=== PATIENT | female | born 1945 | race American Indian/Alaskan Native ===

== ENCOUNTER 2017-11-04 06:36 | Inpatient (IN) | payer MEDICARE ==
[2017-11-04 07:10] VITALS: BMI 34.3
[2017-11-04] MEDS ORDERED: Bacitracin Ointment 30 GM TUBE ONE (07:30)
[2017-11-04] MEDS ORDERED: Absorbable Gelatin Sponge Size 100 ONE (07:30)
[2017-11-04] MEDS ORDERED: Thrombin Topical 5,000 Int Units Spray Kit ONE (07:31)
--- NOTE | 2017-11-04 07:42 | CP.PCM.HP ---
History of Present Illness - History of Present Illness History of Present Illness: Orthopedic H&P Patient is a 72 y/o female with PMH of HTN, c/o of left knee pain. She has experienced severe left knee pain since 2014 following a fall from her steps at home. She has history of a left partial knee replacement in 2009 and a left total knee replacement in 2012. She had no difficulties or pain following the TKA until her injury in 2014. The pain has persisted but has progressively worsened despite conservative treatment with physical therapy and oral medications. Her pain is diffuse about the knee and intermittent. The pain is associated with stiffness and swelling which worsens with activity. She has pain and severe limitation with her daily activities, especially walking and stairclimbing. She denies numbness, tingling and radiation of pain. She also denies, CP/SOB/N/V/D/fever/CAMPUZANO/dysuria/melena. Review of Systems - Review of Systems All systems: reviewed and no additional remarkable complaints except Review of Systems: as per HPI Past Patient History - Infectious Disease Hx of Infectious Diseases: None - Tetanus Immunizations Tetanus Immunization: Unknown - Past Medical History & Family History Past Medical History?: Yes Past Family History: Reviewed and not pertinent - Past Social History Smoking Status: Never Smoked Alcohol: None - CARDIAC Hx Cardiac Disorders: Yes - PULMONARY Hx Respiratory Disorders: No - NEUROLOGICAL Hx Neurological Disorder: No - HEENT Hx HEENT Problems: Yes Hx Glaucoma: Yes - RENAL Hx Chronic Kidney Disease: No - ENDOCRINE/METABOLIC Hx Endocrine Disorders: No - HEMATOLOGICAL/ONCOLOGICAL Hx Blood Disorders: No - INTEGUMENTARY Hx Dermatological Problems: No - MUSCULOSKELETAL/RHEUMATOLOGICAL Hx Musculoskeletal Disorders: Yes Hx Arthritis: Yes (general) Hx Back Pain: Yes Hx Herniated Disk: Yes (3) - GASTROINTESTINAL Hx Gastrointestinal Disorders: No - GENITOURINARY/GYNECOLOGICAL Hx Genitourinary Disorders: No - PSYCHIATRIC Hx Psychophysiologic Disorder: No - SURGICAL HISTORY Hx Surgeries: Yes Hx Arthroscopy: Yes (right shoulder) Hx Orthopedic Surgery: Yes (L DAO, R knee partial repl, L knee partial repl, L TKA, R shoulder arth RCR) - ANESTHESIA Hx Anesthesia: Yes Hx Anesthesia Reactions: No Hx Malignant Hyperthermia: No Has any member of the family had a problem w/ anesthesia?: No Meds Allergies/Adverse Reactions: Allergies Allergy/AdvReac Type Severity Reaction Status Date / Time No Known Allergies Allergy Verified 11/04/17 08:50 Physical Exam - Constitutional Appears: No Acute Distress - Head Exam Head Exam: ATRAUMATIC, NORMOCEPHALIC - Eye Exam Eye Exam: EOMI, Normal appearance, PERRL - ENT Exam ENT Exam: Mucous Membranes Moist - Respiratory Exam Respiratory Exam: Clear to Auscultation Bilateral, NORMAL BREATHING PATTERN - GI/Abdominal Exam GI & Abdominal Exam: absent: Tenderness - Extremities Exam Additional comments: L knee: old TKA scar, mild tenderness, mild swelling well balanced TKA prosthesis sensation intact SP/DP/TN motor intact EHL/FHL/TA/G/Q/HS pedal pulses intact comp soft NT R knee: old lateral partial knee replacement scar, no tenderness, no swelling sensation intact SP/DP/TN motor intact EHL/FHL/TA/G/Q/HS pedal pulses intact comp soft NT - Neurological Exam Neurological exam: Alert, Oriented x3 - Psychiatric Exam Psychiatric exam: Normal Affect, Normal Mood - Skin Skin Exam: Normal Color, Warm Assessment & Plan (1) Painful total knee replacement, left Assessment and Plan: -OR today for left revision total knee replacement -The risks/benefits/advantages/disadvantages were explained to the patient in detail. The patient expresses understanding and agrees to proceed with procedure listed above -above d/w Dr. Peterson in agreement Status: Acute
--- NOTE | 2017-11-04 08:33 | CP.PCM.CON ---
History of Present Illness - History of Present Illness History of Present Illness: pt seen evaluated mets > 4, medically stable for OR, low risk for moderate risk procedure. Past Patient History - Infectious Disease Hx of Infectious Diseases: None - Tetanus Immunizations Tetanus Immunization: Unknown - Past Medical History & Family History Past Medical History?: Yes - Past Social History Smoking Status: Never Smoked - CARDIAC Hx Cardiac Disorders: Yes - PULMONARY Hx Respiratory Disorders: No - NEUROLOGICAL Hx Neurological Disorder: No - HEENT Hx HEENT Problems: Yes Hx Glaucoma: Yes - RENAL Hx Chronic Kidney Disease: No - ENDOCRINE/METABOLIC Hx Endocrine Disorders: No - HEMATOLOGICAL/ONCOLOGICAL Hx Blood Disorders: No - INTEGUMENTARY Hx Dermatological Problems: No - MUSCULOSKELETAL/RHEUMATOLOGICAL Hx Musculoskeletal Disorders: Yes Hx Arthritis: Yes (general) Hx Back Pain: Yes Hx Herniated Disk: Yes (3) - GASTROINTESTINAL Hx Gastrointestinal Disorders: No - GENITOURINARY/GYNECOLOGICAL Hx Genitourinary Disorders: No - PSYCHIATRIC Hx Psychophysiologic Disorder: No - SURGICAL HISTORY Hx Surgeries: Yes Hx Arthroscopy: Yes (right shoulder) Hx Orthopedic Surgery: Yes (total left hip,total left knee x2,carpal tunnel left ) - ANESTHESIA Hx Anesthesia: Yes Hx Anesthesia Reactions: No Hx Malignant Hyperthermia: No Has any member of the family had a problem w/ anesthesia?: No Meds Allergies/Adverse Reactions: Allergies Allergy/AdvReac Type Severity Reaction Status Date / Time No Known Allergies Allergy Verified 07/21/15 06:57 - Medications Medications: Current Medications Valsartan (Diovan) 160 mg PO DAILY [facility]
[2017-11-04 09:48] LABS: HEMOGLOBIN 14.5 g/dL (12.0-16.0); MEAN CELL VOLUME 91.5 fl (81.0-99.0); MEAN CORPUSCULAR HEMOGLOBIN 30.3 pg (27.0-31.0); MEAN CORPUSCULAR HGB CONC 33.1 g/dL (33.0-37.0); RBC 4.78 Mil/uL (3.80-5.20); RED CELL DISTRIBUTION WIDTH 14.8 % (11.5-14.5); WHITE BLOOD COUNT 3.2 K/uL (4.8-10.8)
[2017-11-04] MEDS ORDERED: Lactated Ringer's 1,000 ML IV ONE ×2 (09:55→10:00)
[2017-11-04] MEDS ORDERED: Propofol 10 mg/ml Inj (20 ML) ONE (10:02)
[2017-11-04] MEDS ORDERED: Etomidate 20 mg/10ml Inj IV ONE (10:02)
[2017-11-04] MEDS ORDERED: Lidocaine 4% (Laryng-O-Jet) Kit MM ONE (10:02)
[2017-11-04] MEDS ORDERED: Succinylcholine 200 mg/10 ml Inj IV ONE (10:02)
[2017-11-04] MEDS ORDERED: Rocuronium 10 mg/ml (5 ml) ONE (10:05)
[2017-11-04] MEDS ORDERED: Neostigmine 1:1000 (1 mg/ml) Inj ONE (10:06)
[2017-11-04] MEDS ORDERED: Midazolam 2 MG/2 ML VIAL ONE (10:13)
[2017-11-04] MEDS ORDERED: Tranexamic Acid 1,000 MG in Sodium Chloride 0.9% 100 ML IVPB ONE ×2 (10:58→13:29)
--- NOTE | 2017-11-04 11:01 | RAD ---
PROCEDURE: Left Knee Radiographs. HISTORY: Pain. COMPARISON: None. FINDINGS: BONES: Satisfactory position, alignment of prosthetic components No evidence of orthopedic hardware failure. JOINT EFFUSION: None. OTHER FINDINGS: None. IMPRESSION: No significant or acute findings to account for/ related to the clinical presentation.
[2017-11-04 11:45] LABS: FLUID TYPE SYNOVIAL FLUID
[2017-11-04 12:02] LABS: FLUID TYPE SYNOVIAL FLUID
[2017-11-04] MEDS ORDERED: Dexamethasone 4 mg/1 ml ONE (12:05)
[2017-11-04] MEDS ORDERED: Lactated Ringer's 500 ML IV ONE (14:15)
[2017-11-04] MEDS ORDERED: Oxycodone/Acetaminophen 5/325 mg Tab PO PRN (14:37)
[2017-11-04] MEDS ORDERED: HYDROmorphone 0.5 mg/0.5 ml ISec IVP PRN (14:41)
[2017-11-04 15:03] LABS: SF GROSS APPEARANCE CLOUDY (CLEAR); SYNOVIAL FLUID COMMENT SL BLOODY
[2017-11-04 15:06] LABS: SYNOVIAL FLUID MONO/MACROPHAGE 23 % (0-0)
[2017-11-04 15:16] LABS: SF GROSS APPEARANCE CLEAR (CLEAR); SYNOVIAL FLUID COMMENT SLIGHTLY BLOODY
[2017-11-04 15:19] LABS: SYNOVIAL FLUID MONO/MACROPHAGE 1 % (0-0)
--- NOTE | 2017-11-04 15:36 | CP.PCM.CON ---
History of Present Illness - History of Present Illness History of Present Illness: Patient is a 72 y/o female with PMH of HTN, c/o of left knee pain. She has experienced severe left knee pain since 2014 following a fall from her steps at home. She has history of a left partial knee replacement in 2009 and a left total knee replacement in 2012. She had no difficulties or pain following the TKA until her injury in 2014. The pain has persisted but has progressively worsened despite conservative treatment with physical therapy and oral medications. Her pain is diffuse about the knee and intermittent. The pain is associated with stiffness and swelling which worsens with activity. She has pain and severe limitation with her daily activities, especially walking and stairclimbing. She denies numbness, tingling and radiation of pain. She also denies, CP/SOB/N/V/D/fever/CAMPUZANO/dysuria/melena. Review of Systems - Review of Systems All systems: reviewed and no additional remarkable complaints except Review of Systems: as per HPI Past Patient History - Infectious Disease Hx of Infectious Diseases: None - Tetanus Immunizations Tetanus Immunization: Unknown - Past Medical History & Family History Past Medical History?: Yes Past Family History: Reviewed and not pertinent - Past Social History Smoking Status: Never Smoked Alcohol: None - CARDIAC Hx Cardiac Disorders: Yes - PULMONARY Hx Respiratory Disorders: No - NEUROLOGICAL Hx Neurological Disorder: No - HEENT Hx HEENT Problems: Yes Hx Glaucoma: Yes - RENAL Hx Chronic Kidney Disease: No - ENDOCRINE/METABOLIC Hx Endocrine Disorders: No - HEMATOLOGICAL/ONCOLOGICAL Hx Blood Disorders: No - INTEGUMENTARY Hx Dermatological Problems: No - MUSCULOSKELETAL/RHEUMATOLOGICAL Hx Musculoskeletal Disorders: Yes Hx Arthritis: Yes (general) Hx Back Pain: Yes Hx Herniated Disk: Yes (3) - GASTROINTESTINAL Hx Gastrointestinal Disorders: No - GENITOURINARY/GYNECOLOGICAL Hx Genitourinary Disorders: No - PSYCHIATRIC Hx Psychophysiologic Disorder: No - SURGICAL HISTORY Hx Surgeries: Yes Hx Arthroscopy: Yes (right shoulder) Hx Orthopedic Surgery: Yes (L DAO, R knee partial repl, L knee partial repl, L TKA, R shoulder arth RCR) - ANESTHESIA Hx Anesthesia: Yes Hx Anesthesia Reactions: No Hx Malignant Hyperthermia: No Has any member of the family had a problem w/ anesthesia?: No Meds Allergies/Adverse Reactions: Allergies Allergy/AdvReac Type Severity Reaction Status Date / Time No Known Allergies Allergy Verified 11/04/17 08:50 - Medications Medications: Current Medications Acetaminophen (Tylenol 325mg Tab) 650 mg PO Q4 PRN PRN Reason: Fever 101 degrees fahrenheit Artificial Tears (Artificial Tears) 1 drop OU BID [facility] Atorvastatin Calcium (Lipitor) 20 mg PO DAILY [facility] Docusate Sodium (Colace) 100 mg PO BID [facility] Home Med (Brimonidine Tartrate [Brimonidine Tartrate]) 10 ml OU BID [facility] Hydromorphone HCl (Dilaudid) 0.5 mg IVP Q5M PRN PRN Reason: Pain, moderate (4-7) Stop: 11/04/17 16:43 Tranexamic Acid 1,000 mg/ (Sodium Chloride) 110 mls @ 12.5 mls/hr IVPB ONCE ONE Stop: 11/04/17 19:45 Tranexamic Acid 1,000 mg/ (Sodium Chloride) 110 mls @ 12.5 mls/hr IVPB ONCE ONE Stop: 11/04/17 22:16 Cefazolin Sodium 2 gm/ Sodium (Chloride) 100 mls @ 100 mls/hr IVPB Q8 [facility] PRN Reason: Protocol Stop: 11/05/17 09:59 Lactated Ringer's (Lactated Ringer's) 1,000 mls @ 100 mls/hr IV .Q10H [facility] Lactated Ringer's (Lactated Ringer's) 1,000 mls @ 100 mls/hr IV .Q10H [facility] Morphine Sulfate (Morphine) 2 mg IVP Q4 PRN PRN Reason: Pain, severe (8-10) Ondansetron HCl (Zofran Inj) 4 mg IVP ONCE PRN PRN Reason: Nausea/Vomiting Ondansetron HCl (Zofran Inj) 4 mg IVP ONCE PRN PRN Reason: Nausea/Vomiting Stop: 11/04/17 16:43 Oxycodone/Acetaminophen (Percocet 5/325 Mg Tab) 2 tab PO Q4 PRN PRN Reason: Pain, severe (8-10) Stop: 11/07/17 14:38 Pantoprazole Sodium (Protonix Ec Tab) 40 mg PO DAILY [facility] Valsartan (Diovan) 160 mg PO DAILY [facility] Valsartan (Diovan) 320 mg PO DAILY [facility] Physical Exam - Constitutional Appears: No Acute Distress - Head Exam Head Exam: ATRAUMATIC, NORMAL INSPECTION - Eye Exam Eye Exam: EOMI, Normal appearance, PERRL - ENT Exam ENT Exam: Mucous Membranes Moist - Respiratory Exam Respiratory Exam: Clear to Auscultation Bilateral, NORMAL BREATHING PATTERN - GI/Abdominal Exam GI & Abdominal Exam: Normal Bowel Sounds. absent: Tenderness - Extremities Exam Additional comments: L knee: old TKA scar, mild tenderness, mild swelling well balanced TKA prosthesis sensation intact SP/DP/TN motor intact EHL/FHL/TA/G/Q/HS pedal pulses intact comp soft NT R knee: old lateral partial knee replacement scar, no tenderness, no swelling sensation intact SP/DP/TN motor intact EHL/FHL/TA/G/Q/HS pedal pulses intact comp soft NT - Neurological Exam Neurological exam: Alert, Oriented x3 - Psychiatric Exam Psychiatric exam: Normal Affect, Normal Mood - Skin Skin Exam: Normal Color, Warm Results - Vital Signs Recent Vital Signs: Last Vital Signs Temp 96.8 F L 11/04/17 15:05 Pulse 56 L 11/04/17 15:05 Resp 18 11/04/17 15:05 BP 136/91 H 11/04/17 15:05 Pulse Ox 98 11/04/17 14:50 - Labs Result Diagrams: 11/04/17 08:20 Labs: Laboratory Results - last 24 hr 11/04/17 11/04/17 11/04/17 08:20 08:20 11:43 WBC 3.2 L RBC 4.78 Hgb 14.5 Hct 43.8 MCV 91.5 MCH 30.3 MCHC 33.1 RDW 14.8 H Plt Count 189 D Fluid Type Synovial fluid Synovial WBC 406.0 H Synovial RBC 1062.0 H Synovial Neutrophils 21.0 H Synovial Lymphocytes 56.0 H Synov Monos/Macrophage 23 H Synovial Fluid Comment Sl bloody Blood Type O POSITIVE Antibody Screen Negative Crossmatch See Detail BBK History Checked Patient has bt 11/04/17 12:01 WBC RBC Hgb Hct MCV MCH MCHC RDW Plt Count Fluid Type Synovial fluid Synovial WBC 15.0 Synovial RBC 1476.0 H Synovial Neutrophils 3.0 H Synovial Lymphocytes 11.0 H Synov Monos/Macrophage 1 H Synovial Fluid Comment Slightly bloody Blood Type Antibody Screen Crossmatch BBK History Checked Assessment & Plan (1) Painful total knee replacement, left Assessment and Plan: -OR today for left revision total knee replacement -The risks/benefits/advantages/disadvantages were explained to the patient in detail. The patient expresses understanding and agrees to proceed with procedure listed above -above d/w Dr. Peterson in agreement Status: Acute
--- NOTE | 2017-11-04 15:43 | CP.PCM.HP ---
History of Present Illness - History of Present Illness History of Present Illness: CC: KNEE PAIN HPI: This is a 72 year old female PMH HTN, HLD, GERD, hx bilateral PE, glaucoma presents for L total knee revision after failing conservative treatment as outpatient. Patient has mets >4, and is medically stable and low risk for moderate risk procedure. She was evaluated by Dr. Emily Go for medical clearance as well. H/H 14.1/44.4. ECHO showed mild LVH, mild TR and AI. HD stable, NAD. ROS: perHPI all other systems reviewed and negative. Present on Admission - Present on Admission Any Indicators Present on Admission: No Past Patient History - Infectious Disease Hx of Infectious Diseases: None - Tetanus Immunizations Tetanus Immunization: Unknown - Past Medical History & Family History Past Medical History?: Yes Past Family History: Reviewed and not pertinent - Past Social History Smoking Status: Never Smoked Alcohol: None - CARDIAC Hx Cardiac Disorders: Yes - PULMONARY Hx Respiratory Disorders: No - NEUROLOGICAL Hx Neurological Disorder: No - HEENT Hx HEENT Problems: Yes Hx Glaucoma: Yes - RENAL Hx Chronic Kidney Disease: No - ENDOCRINE/METABOLIC Hx Endocrine Disorders: No - HEMATOLOGICAL/ONCOLOGICAL Hx Blood Disorders: No - INTEGUMENTARY Hx Dermatological Problems: No - MUSCULOSKELETAL/RHEUMATOLOGICAL Hx Musculoskeletal Disorders: Yes Hx Arthritis: Yes (general) Hx Back Pain: Yes Hx Herniated Disk: Yes (3) - GASTROINTESTINAL Hx Gastrointestinal Disorders: No - GENITOURINARY/GYNECOLOGICAL Hx Genitourinary Disorders: No - PSYCHIATRIC Hx Psychophysiologic Disorder: No - SURGICAL HISTORY Hx Surgeries: Yes Hx Arthroscopy: Yes (right shoulder) Hx Orthopedic Surgery: Yes (L DAO, R knee partial repl, L knee partial repl, L TKA, R shoulder arth RCR) - ANESTHESIA Hx Anesthesia: Yes Hx Anesthesia Reactions: No Hx Malignant Hyperthermia: No Has any member of the family had a problem w/ anesthesia?: No Meds Allergies/Adverse Reactions: Allergies Allergy/AdvReac Type Severity Reaction Status Date / Time No Known Allergies Allergy Verified 11/04/17 08:50 Physical Exam - Additional Findings Additional findings: General: awake, alert HEENT: NCAT, PERRL, EOMI HEART: RRR, S1, S2 no MRG LUNG: CTAB, no WRR ABD: soft, NT, ND, no mass, no HSM EXT: warm, well perfused NEURO: awake, alert SKIN: warm, dry PSYCH: normal mood, normal affect Results - Vital Signs Recent Vital Signs: Last Vital Signs Temp 96.8 F L 11/04/17 15:05 Pulse 56 L 11/04/17 15:05 Resp 18 11/04/17 15:05 BP 136/91 H 11/04/17 15:05 Pulse Ox 98 11/04/17 14:50 - Labs Result Diagrams: 11/04/17 08:20 Labs: Laboratory Results - last 24 hr 11/04/17 11/04/17 11/04/17 08:20 08:20 11:43 WBC 3.2 L RBC 4.78 Hgb 14.5 Hct 43.8 MCV 91.5 MCH 30.3 MCHC 33.1 RDW 14.8 H Plt Count 189 D Fluid Type Synovial fluid Synovial WBC 406.0 H Synovial RBC 1062.0 H Synovial Neutrophils 21.0 H Synovial Lymphocytes 56.0 H Synov Monos/Macrophage 23 H Synovial Fluid Comment Sl bloody Blood Type O POSITIVE Antibody Screen Negative Crossmatch See Detail BBK History Checked Patient has bt 11/04/17 12:01 WBC RBC Hgb Hct MCV MCH MCHC RDW Plt Count Fluid Type Synovial fluid Synovial WBC 15.0 Synovial RBC 1476.0 H Synovial Neutrophils 3.0 H Synovial Lymphocytes 11.0 H Synov Monos/Macrophage 1 H Synovial Fluid Comment Slightly bloody Blood Type Antibody Screen Crossmatch BBK History Checked Assessment & Plan - Assessment and Plan (Free Text) Plan: 72 year old female PMH HTN, HLD, GERD, hx bilateral PE, glaucoma presents for L total knee revision after failing conservative treatment as outpatient. Patient has mets >4, and is medically stable and low risk for moderate risk procedure. She was evaluated by Dr. Emily Go for medical clearance as well. H/H 14.1/44.4. ECHO showed mild LVH, mild TR and AI. HD stable, NAD. L knee Revision with Dr. Peterson Ancef 2 gm 2 more doses Incentive spirometry Orthopedic Surgery Dr. Peterson pain control PT AC per Ortho HTN HLD - continue Valsartan and Atorvastatin
--- NOTE | 2017-11-04 16:16 | PCM.SURG1 ---
Surgeon's Initial Post Op Note - Surgeon's Notes Surgeon: Kristen Sail Finisher Hand: MANN Samuels/ 2nd assist Kyle Bui Type of Anesthesia: General Endo, Spinal, Moderate Sedation{RN} Anesthesia Administered By: Dr Huertas Pre-Operative Diagnosis: Painful, non septic L TKR Operative Findings: aseptic lossening femoral component/aseptic loosening tibial componeent s/p L TKR. synovitis- tricompartmental. contracture posterioor capsule/. lateral patella contracture Post-Operative Diagnosis: as above Operation Performed: Revision L TKR. anterior and posterior synovectomy. posterior capsular releaase. lateral patella release. computer navigation Specimen/Specimens Removed: synvoiun/cartilage/bone Estimated Blood Loss: EBL {In ML}: 75 Blood Products Given: N/A Drains Used: Hemovac Post-Op Condition: Good Date of Surgery/Procedure: 11/04/17 Time of Surgery/Procedure: 11:15 (time in room /anaetshesia indcution time 9:55)
[2017-11-04] MEDS ORDERED: ceFAZolin 2 GM in Sodium Chloride 0.9% 100 ML IVPB SCH (17:00)
--- NOTE | 2017-11-04 17:10 | RAD ---
PROCEDURE: Left knee HISTORY: s/p L revision TKA COMPARISON: Preoperative study November 04, 2017. 08:49. TECHNIQUE: Standard protocol for this study/examination. FINDINGS: AP and lateral views demonstrate satisfactory position alignment of orthopedic hardware following residua of previously identified left knee arthroplasty. No evidence of loosening. No evidence of hardware failure. Findings in soft tissues including surgical drains noted. IMPRESSION: Satisfactory postoperative status.
[2017-11-04] MEDS: Lactated Ringer's 1,000 ML IV SCH ×2 (18:23→18:27)
[2017-11-04] MEDS: ceFAZolin 2 GM in Sodium Chloride 0.9% 100 ML IVPB SCH (18:23)
[2017-11-04] MEDS: Artificial Tears Opht Soln OU SCH (18:26)
--- NOTE | 2017-11-04 19:53 | CP.PCM.CON ---
History of Present Illness - History of Present Illness History of Present Illness: I WAS ASKED TO SEE THIS PATIENT WHO UNDERWENT A LEFT TKR EARLIER TODAY FOR SEVERE OA THAT FAILED CONSERVATIVE TREATMENT. SHE ALSO HAS A HISTORY OF HYPERTENSION, HYPERLIPIDEMIA, GERS AND PE'S. SHE DENIES ANY CARDIAC PROBLEMS SUCH CAD. SHE DOES NOT HAVE CHEST PAIN OR CAD. SHE HAS HAD MULTIPLE OTHER ORTHOPEDIC PROCEDURES IN THE PAST. Past Patient History - Infectious Disease Hx of Infectious Diseases: None - Tetanus Immunizations Tetanus Immunization: Unknown - Past Medical History & Family History Past Medical History?: Yes Past Family History: Reviewed and not pertinent - Past Social History Smoking Status: Never Smoked Alcohol: None - CARDIAC Hx Cardiac Disorders: Yes - PULMONARY Hx Respiratory Disorders: No - NEUROLOGICAL Hx Neurological Disorder: No - HEENT Hx HEENT Problems: Yes Hx Glaucoma: Yes - RENAL Hx Chronic Kidney Disease: No - ENDOCRINE/METABOLIC Hx Endocrine Disorders: No - HEMATOLOGICAL/ONCOLOGICAL Hx Blood Disorders: No - INTEGUMENTARY Hx Dermatological Problems: No - MUSCULOSKELETAL/RHEUMATOLOGICAL Hx Musculoskeletal Disorders: Yes Hx Arthritis: Yes (general) Hx Back Pain: Yes Hx Herniated Disk: Yes (3) - GASTROINTESTINAL Hx Gastrointestinal Disorders: No - GENITOURINARY/GYNECOLOGICAL Hx Genitourinary Disorders: No - PSYCHIATRIC Hx Psychophysiologic Disorder: No - SURGICAL HISTORY Hx Surgeries: Yes Hx Arthroscopy: Yes (right shoulder) Hx Orthopedic Surgery: Yes (L DAO, R knee partial repl, L knee partial repl, L TKA, R shoulder arth RCR) - ANESTHESIA Hx Anesthesia: Yes Hx Anesthesia Reactions: No Hx Malignant Hyperthermia: No Has any member of the family had a problem w/ anesthesia?: No Meds Allergies/Adverse Reactions: Allergies Allergy/AdvReac Type Severity Reaction Status Date / Time No Known Allergies Allergy Verified 11/04/17 08:50 - Medications Medications: Current Medications Acetaminophen (Tylenol 325mg Tab) 650 mg PO Q4 PRN PRN Reason: Fever 101 degrees fahrenheit Artificial Tears (Artificial Tears) 1 drop OU BID [facility] Last Admin: 11/04/17 18:26 Dose: 1 drop Atorvastatin Calcium (Lipitor) 20 mg PO DAILY [facility] Docusate Sodium (Colace) 100 mg PO BID [facility] Last Admin: 11/04/17 18:26 Dose: 100 mg Enoxaparin Sodium (Lovenox) 40 mg SC DAILY [facility] PRN Reason: Protocol Home Med (Brimonidine Tartrate [Brimonidine Tartrate]) 10 ml OU BID [facility] Tranexamic Acid 1,000 mg/ (Sodium Chloride) 110 mls @ 12.5 mls/hr IVPB ONCE ONE Stop: 11/04/17 22:16 Lactated Ringer's (Lactated Ringer's) 1,000 mls @ 100 mls/hr IV .Q10H [facility] Last Admin: 11/04/17 18:27 Dose: Not Given Lactated Ringer's (Lactated Ringer's) 1,000 mls @ 100 mls/hr IV .Q10H [facility] Last Admin: 11/04/17 18:23 Dose: Not Given Cefazolin Sodium 2 gm/ Sodium (Chloride) 100 mls @ 100 mls/hr IVPB Q8@0245,1045 ,1845 [facility] PRN Reason: Protocol Stop: 11/05/17 11:44 Last Admin: 11/04/17 18:23 Dose: 100 mls/hr Morphine Sulfate (Morphine) 2 mg IVP Q4 PRN PRN Reason: Pain, severe (8-10) Ondansetron HCl (Zofran Inj) 4 mg IVP ONCE PRN PRN Reason: Nausea/Vomiting Oxycodone/Acetaminophen (Percocet 5/325 Mg Tab) 2 tab PO Q4 PRN PRN Reason: Pain, severe (8-10) Stop: 11/07/17 14:38 Pantoprazole Sodium (Protonix Ec Tab) 40 mg PO DAILY [facility] Valsartan (Diovan) 320 mg PO DAILY [facility] Physical Exam - Respiratory Exam Respiratory Exam: Clear to Auscultation Bilateral - Cardiovascular Exam Cardiovascular Exam: REGULAR RHYTHM, +S1, +S2 - Extremities Exam Additional comments: LLE IN IMMOBILIZER RLE WITHOUT EDEMA AND NEGATIVE CARRINGTON'S SIGN Results - Vital Signs Recent Vital Signs: Last Vital Signs Temp 97.1 F L 11/04/17 18:30 Pulse 58 L 11/04/17 18:30 Resp 20 11/04/17 18:30 BP 137/81 11/04/17 18:30 Pulse Ox 95 11/04/17 16:15 - Labs Result Diagrams: 11/04/17 08:20 Labs: Laboratory Results - last 24 hr 11/04/17 11/04/17 11/04/17 08:20 08:20 11:43 WBC 3.2 L RBC 4.78 Hgb 14.5 Hct 43.8 MCV 91.5 MCH 30.3 MCHC 33.1 RDW 14.8 H Plt Count 189 D Fluid Type Synovial fluid Synovial WBC 406.0 H Synovial RBC 1062.0 H Synovial Neutrophils 21.0 H Synovial Lymphocytes 56.0 H Synov Monos/Macrophage 23 H Synovial Fluid Comment Sl bloody Blood Type O POSITIVE Antibody Screen Negative Crossmatch See Detail BBK History Checked Patient has bt 11/04/17 12:01 WBC RBC Hgb Hct MCV MCH MCHC RDW Plt Count Fluid Type Synovial fluid Synovial WBC 15.0 Synovial RBC 1476.0 H Synovial Neutrophils 3.0 H Synovial Lymphocytes 11.0 H Synov Monos/Macrophage 1 H Synovial Fluid Comment Slightly bloody Blood Type Antibody Screen Crossmatch BBK History Checked Assessment & Plan - Assessment and Plan (Free Text) Assessment: S/P LEFT TKR OF SEVERE OA HYPERTENSION HYPERLIPIDEMIA GERDS Plan: CONTINUE VALSARTAN, ATORVASTATIN, PROTONIX, LOVENOX AND PAIN MEDICATIONS
[2017-11-05] MEDS: Lactated Ringer's 1,000 ML IV SCH ×5 (01:39→22:15)
[2017-11-05] MEDS: ceFAZolin 2 GM in Sodium Chloride 0.9% 100 ML IVPB SCH ×2 (01:48→10:38)
[2017-11-05 07:06] LABS: MEAN CELL VOLUME 90.7 fl (81.0-99.0); MEAN CORPUSCULAR HEMOGLOBIN 30.6 pg (27.0-31.0); MEAN CORPUSCULAR HGB CONC 33.8 g/dL (33.0-37.0); RBC 3.9 Mil/uL (3.80-5.20); RED CELL DISTRIBUTION WIDTH 14.3 % (11.5-14.5); WHITE BLOOD COUNT 5.2 K/uL (4.8-10.8)
[2017-11-05 07:31] LABS: BLOOD UREA NITROGEN 15 mg/dl (7-17); CALCIUM 8.8 mg/dL (8.4-10.2); GFR AFRICAN-AMERICAN > 60; GFR NON-AFRICAN AMERICAN > 60
--- NOTE | 2017-11-05 09:08 | CP.PCM.PN ---
Subjective - Date & Time of Evaluation Date of Evaluation: 11/05/17 Time of Evaluation: 08:20 - Subjective Subjective: NO CHEST PAIN OR SOB Objective - Vital Signs/Intake and Output Vital Signs (last 24 hours): Temp Pulse Resp BP Pulse Ox 98.3 F 70 19 151/80 H 93 L 11/05/17 08:18 11/05/17 08:18 11/05/17 08:18 11/05/17 08:18 11/05/17 08:18 - Medications Medications: Current Medications Acetaminophen (Tylenol 325mg Tab) 650 mg PO Q4 PRN PRN Reason: Fever 101 degrees fahrenheit Artificial Tears (Artificial Tears) 1 drop OU BID [facility] Last Admin: 11/04/17 18:26 Dose: 1 drop Atorvastatin Calcium (Lipitor) 20 mg PO DAILY [facility] Brimonidine Tartrate (Alphagan 0.2% Opht) 1 drop OU BID [facility] Docusate Sodium (Colace) 100 mg PO BID [facility] Last Admin: 11/04/17 18:26 Dose: 100 mg Enoxaparin Sodium (Lovenox) 40 mg SC DAILY [facility] PRN Reason: Protocol Lactated Ringer's (Lactated Ringer's) 1,000 mls @ 100 mls/hr IV .Q10H [facility] Last Admin: 11/05/17 01:54 Dose: 100 mls/hr Lactated Ringer's (Lactated Ringer's) 1,000 mls @ 100 mls/hr IV .Q10H [facility] Last Admin: 11/05/17 01:39 Dose: Not Given Cefazolin Sodium 2 gm/ Sodium (Chloride) 100 mls @ 100 mls/hr IVPB Q8@0245,1045 ,1845 [facility] PRN Reason: Protocol Stop: 11/05/17 11:44 Last Admin: 11/05/17 01:48 Dose: 100 mls/hr Morphine Sulfate (Morphine) 2 mg IVP Q4 PRN PRN Reason: Pain, severe (8-10) Last Admin: 11/05/17 05:11 Dose: 2 mg Ondansetron HCl (Zofran Inj) 4 mg IVP ONCE PRN PRN Reason: Nausea/Vomiting Oxycodone/Acetaminophen (Percocet 5/325 Mg Tab) 2 tab PO Q4 PRN PRN Reason: Pain, severe (8-10) Stop: 11/07/17 14:38 Pantoprazole Sodium (Protonix Ec Tab) 40 mg PO DAILY [facility] Valsartan (Diovan) 320 mg PO DAILY [facility] - Labs Labs: 11/05/17 06:30 11/05/17 06:30 - Respiratory Exam Respiratory Exam: Clear to Ausculation Bilateral - Cardiovascular Exam Cardiovascular Exam: REGULAR RHYTHM, +S1, +S2 - Additional Findings Additional findings: H/H Assessment and Plan - Assessment and Plan (Free Text) Assessment: REVISION OF LEFT TKR HYPERTENSION HYPERLIPIDEMIA Plan: CONTINUE VALSARTAN, ATORVASTATIN, LOVENOX AND PAIN MEDICATIONS FOR REHA
[2017-11-05] MEDS: Brimonidine 0.2% 50 DROP/5 ML BOTTLE OU SCH ×2 (10:22→17:52)
[2017-11-05] MEDS: Enoxaparin 40 mg Syringe SC SCH (10:29)
[2017-11-05] MEDS: Pantoprazole 40 mg EC Tab PO SCH (10:30)
[2017-11-05] MEDS: Artificial Tears Opht Soln OU SCH ×2 (10:40→17:47)
--- NOTE | 2017-11-05 11:55 | CP.PCM.PN ---
Subjective - Date & Time of Evaluation Date of Evaluation: 11/05/17 Time of Evaluation: 11:55 - Subjective Subjective: doing well pain controlled for PT today hd stable nad Objective - Vital Signs/Intake and Output Vital Signs (last 24 hours): Temp Pulse Resp BP Pulse Ox 98.3 F 70 19 151/80 H 93 L 11/05/17 08:18 11/05/17 08:18 11/05/17 08:18 11/05/17 08:18 11/05/17 08:18 Intake and Output: General: awake, alert HEENT: NCAT, PERRL, EOMI HEART: RRR, S1, S2 no MRG LUNG: CTAB, no WRR ABD: soft, NT, ND, no mass, no HSM EXT: warm, well perfused NEURO: awake, alert SKIN: warm, dry PSYCH: normal mood, normal affect - Medications Medications: Current Medications Acetaminophen (Tylenol 325mg Tab) 650 mg PO Q4 PRN PRN Reason: Fever 101 degrees fahrenheit Artificial Tears (Artificial Tears) 1 drop OU BID [facility] Last Admin: 11/05/17 10:40 Dose: 1 drop Atorvastatin Calcium (Lipitor) 20 mg PO DAILY [facility] Last Admin: 11/05/17 10:29 Dose: 20 mg Brimonidine Tartrate (Alphagan 0.2% Opht) 1 drop OU BID [facility] Docusate Sodium (Colace) 100 mg PO BID [facility] Last Admin: 11/05/17 10:29 Dose: 100 mg Enoxaparin Sodium (Lovenox) 40 mg SC DAILY [facility] PRN Reason: Protocol Last Admin: 11/05/17 10:29 Dose: 40 mg Lactated Ringer's (Lactated Ringer's) 1,000 mls @ 100 mls/hr IV .Q10H [facility] Last Admin: 11/05/17 10:48 Dose: 100 mls/hr Lactated Ringer's (Lactated Ringer's) 1,000 mls @ 100 mls/hr IV .Q10H [facility] Last Admin: 11/05/17 10:49 Dose: Not Given Morphine Sulfate (Morphine) 2 mg IVP Q4 PRN PRN Reason: Pain, severe (8-10) Last Admin: 11/05/17 05:11 Dose: 2 mg Ondansetron HCl (Zofran Inj) 4 mg IVP ONCE PRN PRN Reason: Nausea/Vomiting Oxycodone/Acetaminophen (Percocet 5/325 Mg Tab) 2 tab PO Q4 PRN PRN Reason: Pain, severe (8-10) Stop: 11/07/17 14:38 Pantoprazole Sodium (Protonix Ec Tab) 40 mg PO DAILY [facility] Last Admin: 11/05/17 10:30 Dose: 40 mg Valsartan (Diovan) 320 mg PO DAILY [facility] Last Admin: 11/05/17 10:30 Dose: 320 mg - Labs Labs: 11/05/17 06:30 11/05/17 06:30 Assessment and Plan - Assessment and Plan (Free Text) Plan: 72 year old female PMH HTN, HLD, GERD, hx bilateral PE, glaucoma presents for L total knee revision after failing conservative treatment as outpatient. Patient has mets >4, and is medically stable and low risk for moderate risk procedure. She was evaluated by Dr. Emily Go for medical clearance as well. H/H 14.1/44.4. ECHO showed mild LVH, mild TR and AI. HD stable, NAD. L knee Revision with Dr. Peterson Ancef 2 gm 2 more doses Incentive spirometry Orthopedic Surgery Dr. Peterson pain control PT for PT recs AC per Ortho HTN HLD - continue Valsartan and Atorvastatin
--- NOTE | 2017-11-05 12:40 | CP.PCM.PN ---
Subjective - Date & Time of Evaluation Date of Evaluation: 11/05/17 Time of Evaluation: 09:00 - Subjective Subjective: Patient seen and examined at bedside comfortable. Pain well controlled. Improved sensation and motor as a result of preop nerve block. Pos void, neg BM. No acute events overnight. Objective - Vital Signs/Intake and Output Vital Signs (last 24 hours): Temp Pulse Resp BP Pulse Ox 98.3 F 70 19 151/80 H 93 L 11/05/17 08:18 11/05/17 08:18 11/05/17 08:18 11/05/17 08:18 11/05/17 08:18 - Medications Medications: Current Medications Acetaminophen (Tylenol 325mg Tab) 650 mg PO Q4 PRN PRN Reason: Fever 101 degrees fahrenheit Artificial Tears (Artificial Tears) 1 drop OU BID [facility] Last Admin: 11/05/17 10:40 Dose: 1 drop Atorvastatin Calcium (Lipitor) 20 mg PO DAILY [facility] Last Admin: 11/05/17 10:29 Dose: 20 mg Brimonidine Tartrate (Alphagan 0.2% Opht) 1 drop OU BID [facility] Docusate Sodium (Colace) 100 mg PO BID [facility] Last Admin: 11/05/17 10:29 Dose: 100 mg Enoxaparin Sodium (Lovenox) 40 mg SC DAILY [facility] PRN Reason: Protocol Last Admin: 11/05/17 10:29 Dose: 40 mg Lactated Ringer's (Lactated Ringer's) 1,000 mls @ 100 mls/hr IV .Q10H [facility] Last Admin: 11/05/17 10:48 Dose: 100 mls/hr Lactated Ringer's (Lactated Ringer's) 1,000 mls @ 100 mls/hr IV .Q10H [facility] Last Admin: 11/05/17 10:49 Dose: Not Given Morphine Sulfate (Morphine) 2 mg IVP Q4 PRN PRN Reason: Pain, severe (8-10) Last Admin: 11/05/17 05:11 Dose: 2 mg Ondansetron HCl (Zofran Inj) 4 mg IVP ONCE PRN PRN Reason: Nausea/Vomiting Oxycodone/Acetaminophen (Percocet 5/325 Mg Tab) 2 tab PO Q4 PRN PRN Reason: Pain, severe (8-10) Stop: 11/07/17 14:38 Pantoprazole Sodium (Protonix Ec Tab) 40 mg PO DAILY [facility] Last Admin: 11/05/17 10:30 Dose: 40 mg Valsartan (Diovan) 320 mg PO DAILY [facility] Last Admin: 11/05/17 10:30 Dose: 320 mg - Labs Labs: 11/05/17 06:30 11/05/17 06:30 - Extremities Exam Additional comments: L knee: dressings CDI, mod swelling, mild tenderness, hemovac intact (145cc output overnight shift) sensation decreased to SP/DP 2nd to nerve block, intact TN motor intact EHL/FHL pedal pulses intact comp soft NT Assessment and Plan (1) Painful total knee replacement, left Assessment & Plan: POD #1 s/p L revision TKA doing well -PT/OT 10%WB foot flat -DVT ppx -complete postop abx -maintain drain, monitor output, may remove judy AM if output decreases -d/c planning to home -above d/w Dr. Peterson in agreement Status: Acute
[2017-11-06] MEDS: Lactated Ringer's 1,000 ML IV SCH ×2 (05:23→09:32)
[2017-11-06 06:58] LABS: HEMOGLOBIN 11.9 g/dL (12.0-16.0); MEAN CORPUSCULAR HGB CONC 32.9 g/dL (33.0-37.0); RBC 3.97 Mil/uL (3.80-5.20); RED CELL DISTRIBUTION WIDTH 14.5 % (11.5-14.5); WHITE BLOOD COUNT 6.2 K/uL (4.8-10.8)
[2017-11-06 07:19] LABS: BLOOD UREA NITROGEN 11 mg/dl (7-17); CALCIUM 8.4 mg/dL (8.4-10.2); GFR AFRICAN-AMERICAN > 60; GFR NON-AFRICAN AMERICAN > 60
[2017-11-06] MEDS ORDERED: Potassium Chloride 20 mEq ER Tab PO ONE (07:48)
[2017-11-06] MEDS: Enoxaparin 40 mg Syringe SC SCH (08:28)
[2017-11-06] MEDS: Pantoprazole 40 mg EC Tab PO SCH (08:29)
[2017-11-06] MEDS: Brimonidine 0.2% 50 DROP/5 ML BOTTLE OU SCH ×2 (08:30→16:27)
[2017-11-06] MEDS: Artificial Tears Opht Soln OU SCH ×2 (08:30→16:27)
--- NOTE | 2017-11-06 08:54 | OP ---
PROCEDURE DATE: 11/04/2017 PREOPERATIVE DIAGNOSES: 1. Painful left total knee replacement. 2. Loosened femoral component. 3. Loosened tibial component. 4. Severe anterior and posterior synovitis. 5. 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 POSTOPERATIVE DIAGNOSES: 1. Painful left total knee replacement. 2. Loosened femoral component. 3. Loosened tibial component. 4. Severe anterior and posterior synovitis. 5. 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 OPERATIVE FINDINGS: 1. Painful left total knee replacement. 2. Loosened femoral component. 3. Loosened tibial component. 4. Severe anterior and posterior synovitis. 5. 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 OPERATIVE PROCEDURE: 1. Revision of left total knee replacement arthroplasty. 2. Anterior and posterior synovectomy. 3. Posterior capsular release. 4. Lateral patellar retinacular release. 5. Computer navigation. SURGEON: Joel Peterson MD MAT GAUGER: Angie Ayala, certified registered nursing anesthesiologists' assistant. SECOND ARRANGING FUNERAL DIRECTOR: Kyle Bui PA-C. ANESTHESIA: General endotracheal anesthesia. COMPLICATIONS: No complications. DRAINS: One Hemovac drain. OPERATIVE INDICATIONS: Mary Moore is a woman well-known to my practice, who is a 72-year-old woman who underwent left total knee replacement approximately 5 years ago. The patient was morbidly obese and the patient had mild pain and sensation of instability in the left knee. There was no evidence of sepsis and the patient has been afebrile. Pros, cons, risks and benefits of revision total knee replacement arthroplasty had been discussed. The patient had developed an intercurrent back problems and was seen by pain management. The possibility of mechanical failure, infection, thromboembolic disease, secondary or tertiary surgery was discussed. OPERATIVE PROCEDURE: After having obtained informed consent, after having identified the side, site and procedure and critical pause/time-out, after the satisfactory induction of the anesthetic, the patient identified as Mary Moore in the supine position with all bony prominences well padded. The left lower extremity was prepped and free draped in usual fashion for lower extremity surgery. After the satisfactory induction of spinal and general anesthesia, after having obtained informed consent, after thoroughly discussing the possibility of mechanical failure, infection, thromboembolic disease, secondary or tertiary surgery, the patient identified as Mary Moore in the supine position with all bony prominences well padded, the left lower extremity having prepped and free draped in the usual fashion for knee replacement surgery. Tourniquet had been applied, but was not yet inflated. After exsanguinating the limb using a 6-inch Esmarch bandage, the tourniquet, which had been applied, was inflated to 350 mmHg. Initial incision was extended two fingerbreadths distally, two fingerbreadths proximal. The skin incision was carried down through the skin and subcutaneous tissue. Hemostasis was controlled with electrocautery. An ellipse of skin and subcutaneous tissue with muscle was removed. The skin incision was carried down to the level of the prepatellar bursa to protect the vessels, which enter the knee . The medial retinaculum was identified. The lateral retinaculum was identified. A medial arthrotomy was accomplished. The dissection was carried around posteromedially to the direct head of the semimembranosus tendon. The portion of the patellar ligament was elevated and the patella was everted. A lateral patellar retinacular release was accomplished for mobilization. The knee was flexed and was found to be unstable. There was found to be essentially a fracture of the tibial peg on the . Also there was found to be exuberant synovitis. Two aliquots of fluid were sent for stat Gram stain number of white cells per high-power field, aerobic, anaerobic, AFB, and fungal cultures. This having been accomplished, the tibial component was removed. The femoral component was removed as was the fractured polyethylene. This having been accomplished, attention was turned to the tibia. Extraction of the tibial component was as follows. A saw blade was used to develop the interval between the metal and the cement. This was carried out circumferentially. This was followed with the Accu-Drive. At this point in time, the tibia was loosened and it was extracted. At this point in time, great care was taken with the high-power drill/bur to remove the cement mantle essentially completely. This having been accomplished, attention was turned to the femur. The interval between the cement and metal was removed again using the small oscillating saw and the Accu-Drive. The femur was removed. Cement mantle was removed as well. At this point in time, attention was turned to preparation of the tibia. A #2 tibial component was employed with guidance for rotation of the lateral aspect of the tibial condyle, mid-lower axis medial third of the tibial tuberosity; however, prior to this computer navigation was used to accomplish the tibial cut at 0 degrees of varus-valgus and 0 degrees posterior slope. The accelerometer computer navigation was applied to the anterior aspect of the tibia, the proximal medial aspect of the tibia, registration of the medial lateral malleoli was accomplished. The posterior aspect of the anterior cruciate ligament insertion was used as the offset guide. The offset was sent. Varus-valgus was set to 0 degrees. Anterior and posterior slope was set to 0 degrees. The tibial osteotomy was accomplished. Reaming was accomplished for the tibial stem and because of the flexion extension gap, it was decided to stack two 11 mm to the undersurface of the tibial component. This having been accomplished, attention was turned to the femur. The femoral shaft had been marked for the joint line prior to extraction of the femoral component. The femoral component having been removed, sequential reaming was carried out to 14 mm in the femoral canal. The distal cutting guide was set to 2 degrees of valgus and the block was thinned and cuts were accomplished at the 10 degrees laterally, 5 degrees medially and the #2 4-in-1 block was placed across the epicondylar axis. Using a combination of the oscillating saw, chamfers and box cut was cut as well, 18 mm was used to enter the canal. This having been accomplished, trialing was accomplished with the shims and with a 12 mm polyethylene. Stability was found to be excellent. With the 22 mm polyethylene, flexion and extension gap was found to be excellent. Patella balance was found to be excellent after lateral patellar retinacular release. Trialing having been accomplished, the wound was thoroughly irrigated. Anterior and posterior synovectomy having been accomplished, posterior capsule having been released, and a portion of the posterior capsule excised, trialing having been successful and balanced with the knee achieving full extension, femur, tibia prepared stemmed #2 femoral component was applied. The stemmed #2 tibial component was applied, 22 mm polyethylene, the balance was found to be excellent, the knee was reduced. The wound was thoroughly irrigated. The tourniquet had been deflated at the 2-hour skip. Hemostasis was controlled with the Aquamantys. Closures in layers with #1 Vicryl over an 8-inch suction Hemovac drain, followed by 0 Vicryl, 2-0 Vicryl and lary for skin. Pool Knowles compression dressing and knee immobilizer was applied. Postoperative x-rays show acceptable position and construct. Joel Peterson MD
--- NOTE | 2017-11-06 09:50 | CP.PCM.PN ---
Subjective - Date & Time of Evaluation Date of Evaluation: 11/06/17 Time of Evaluation: 09:30 - Subjective Subjective: NO CHEST PAIN OR SOB Objective - Vital Signs/Intake and Output Vital Signs (last 24 hours): Temp Pulse Resp BP Pulse Ox 99.7 F H 72 20 169/92 H 97 11/06/17 07:52 11/06/17 07:52 11/06/17 07:52 11/06/17 07:52 11/06/17 07:52 - Medications Medications: Current Medications Acetaminophen (Tylenol 325mg Tab) 650 mg PO Q4 PRN PRN Reason: Fever 101 degrees fahrenheit Artificial Tears (Artificial Tears) 1 drop OU BID [facility] Last Admin: 11/06/17 08:30 Dose: 1 drop Atorvastatin Calcium (Lipitor) 20 mg PO DAILY [facility] Last Admin: 11/06/17 08:29 Dose: 20 mg Brimonidine Tartrate (Alphagan 0.2% Opht) 1 drop OU BID [facility] Last Admin: 11/06/17 08:30 Dose: 1 drop Docusate Sodium (Colace) 100 mg PO BID [facility] Last Admin: 11/06/17 08:29 Dose: 100 mg Enoxaparin Sodium (Lovenox) 40 mg SC DAILY [facility] PRN Reason: Protocol Last Admin: 11/06/17 08:28 Dose: 40 mg Lactated Ringer's (Lactated Ringer's) 1,000 mls @ 100 mls/hr IV .Q10H [facility] Last Admin: 11/06/17 09:32 Dose: 100 mls/hr Lactated Ringer's (Lactated Ringer's) 1,000 mls @ 100 mls/hr IV .Q10H [facility] Last Admin: 11/06/17 05:23 Dose: Not Given Morphine Sulfate (Morphine) 2 mg IVP Q4 PRN PRN Reason: Pain, severe (8-10) Last Admin: 11/06/17 09:27 Dose: 2 mg Ondansetron HCl (Zofran Inj) 4 mg IVP ONCE PRN PRN Reason: Nausea/Vomiting Oxycodone/Acetaminophen (Percocet 5/325 Mg Tab) 2 tab PO Q4 PRN PRN Reason: Pain, severe (8-10) Stop: 11/07/17 14:38 Pantoprazole Sodium (Protonix Ec Tab) 40 mg PO DAILY [facility] Last Admin: 11/06/17 08:29 Dose: 40 mg Valsartan (Diovan) 320 mg PO DAILY [facility] Last Admin: 11/06/17 08:29 Dose: 320 mg - Labs Labs: 11/06/17 05:35 11/06/17 05:35 - Respiratory Exam Respiratory Exam: Clear to Ausculation Bilateral - Cardiovascular Exam Cardiovascular Exam: REGULAR RHYTHM, +S1, +S2 Assessment and Plan - Assessment and Plan (Free Text) Assessment: S/P REVISION OF LEFT TKR HYPERTENSION HYPERLIPIDEMIA Plan: CONTINUE VALSARTAN, ATORVASTATIN AND LOVENOX FOR REHAB
--- NOTE | 2017-11-06 13:02 | CP.PCM.PN ---
Subjective - Date & Time of Evaluation Date of Evaluation: 11/06/17 Time of Evaluation: 13:00 - Subjective Subjective: Patient seen and examined at bedside comfortable. Pain well controlled. No new complaints. Objective - Vital Signs/Intake and Output Vital Signs (last 24 hours): Temp Pulse Resp BP Pulse Ox 99.7 F H 72 20 169/92 H 97 11/06/17 07:52 11/06/17 07:52 11/06/17 07:52 11/06/17 07:52 11/06/17 07:52 - Medications Medications: Current Medications Acetaminophen (Tylenol 325mg Tab) 650 mg PO Q4 PRN PRN Reason: Fever 101 degrees fahrenheit Artificial Tears (Artificial Tears) 1 drop OU BID [facility] Last Admin: 11/06/17 08:30 Dose: 1 drop Atorvastatin Calcium (Lipitor) 20 mg PO DAILY [facility] Last Admin: 11/06/17 08:29 Dose: 20 mg Brimonidine Tartrate (Alphagan 0.2% Opht) 1 drop OU BID [facility] Last Admin: 11/06/17 08:30 Dose: 1 drop Docusate Sodium (Colace) 100 mg PO BID [facility] Last Admin: 11/06/17 08:29 Dose: 100 mg Enoxaparin Sodium (Lovenox) 40 mg SC DAILY [facility] PRN Reason: Protocol Last Admin: 11/06/17 08:28 Dose: 40 mg Lactated Ringer's (Lactated Ringer's) 1,000 mls @ 100 mls/hr IV .Q10H [facility] Last Admin: 11/06/17 09:32 Dose: 100 mls/hr Lactated Ringer's (Lactated Ringer's) 1,000 mls @ 100 mls/hr IV .Q10H [facility] Last Admin: 11/06/17 05:23 Dose: Not Given Morphine Sulfate (Morphine) 2 mg IVP Q4 PRN PRN Reason: Pain, severe (8-10) Last Admin: 11/06/17 09:27 Dose: 2 mg Ondansetron HCl (Zofran Inj) 4 mg IVP ONCE PRN PRN Reason: Nausea/Vomiting Oxycodone/Acetaminophen (Percocet 5/325 Mg Tab) 2 tab PO Q4 PRN PRN Reason: Pain, severe (8-10) Stop: 11/07/17 14:38 Pantoprazole Sodium (Protonix Ec Tab) 40 mg PO DAILY [facility] Last Admin: 11/06/17 08:29 Dose: 40 mg Valsartan (Diovan) 320 mg PO DAILY [facility] Last Admin: 11/06/17 08:29 Dose: 320 mg - Labs Labs: 11/06/17 05:35 11/06/17 05:35 - Extremities Exam Additional comments: L knee: dressings CDI, mod swelling, mild tenderness, hemovac removed this AM sensation intact SP/DP/TN motor intact EHL/FHL pedal pulses intact comp soft NT Assessment and Plan (1) Painful total knee replacement, left Assessment & Plan: POD #2 s/p L revision TKA doing well -PT/OT advance to WBAT -DVT ppx -clear to d/c from orthopedic standpoint -above d/w Dr. Peterson in agreement Status: Acute
--- NOTE | 2017-11-06 17:30 | CP.PCM.PN ---
Subjective - Date & Time of Evaluation Date of Evaluation: 11/06/17 Time of Evaluation: 11:00 - Subjective Subjective: Pt was seen by PT - rec TCU placement Pt's pain is controlled no fever denies CP no SOB no abd pain Dressing changed and Hemovac d/c Objective - Vital Signs/Intake and Output Vital Signs (last 24 hours): Temp Pulse Resp BP Pulse Ox 99.9 F H 82 20 158/90 H 92 L 11/06/17 16:35 11/06/17 16:35 11/06/17 16:35 11/06/17 16:35 11/06/17 16:35 Intake and Output: 11/06/17 11/06/17 06:59 18:59 Output Total 40 Balance -40 - Medications Medications: Current Medications Acetaminophen (Tylenol 325mg Tab) 650 mg PO Q4 PRN PRN Reason: Fever 101 degrees fahrenheit Artificial Tears (Artificial Tears) 1 drop OU BID [facility] Last Admin: 11/06/17 16:27 Dose: 1 drop Atorvastatin Calcium (Lipitor) 20 mg PO DAILY [facility] Last Admin: 11/06/17 08:29 Dose: 20 mg Brimonidine Tartrate (Alphagan 0.2% Opht) 1 drop OU BID [facility] Last Admin: 11/06/17 16:27 Dose: 1 drop Docusate Sodium (Colace) 100 mg PO BID [facility] Last Admin: 11/06/17 16:27 Dose: 100 mg Enoxaparin Sodium (Lovenox) 40 mg SC DAILY [facility] PRN Reason: Protocol Last Admin: 11/06/17 08:28 Dose: 40 mg Lactated Ringer's (Lactated Ringer's) 1,000 mls @ 100 mls/hr IV .Q10H [facility] Last Admin: 11/06/17 09:32 Dose: 100 mls/hr Lactated Ringer's (Lactated Ringer's) 1,000 mls @ 100 mls/hr IV .Q10H [facility] Last Admin: 11/06/17 05:23 Dose: Not Given Morphine Sulfate (Morphine) 2 mg IVP Q4 PRN PRN Reason: Pain, severe (8-10) Last Admin: 11/06/17 13:57 Dose: 2 mg Ondansetron HCl (Zofran Inj) 4 mg IVP ONCE PRN PRN Reason: Nausea/Vomiting Oxycodone/Acetaminophen (Percocet 5/325 Mg Tab) 2 tab PO Q4 PRN PRN Reason: Pain, severe (8-10) Stop: 11/07/17 14:38 Pantoprazole Sodium (Protonix Ec Tab) 40 mg PO DAILY [facility] Last Admin: 11/06/17 08:29 Dose: 40 mg Valsartan (Diovan) 320 mg PO DAILY [facility] Last Admin: 11/06/17 08:29 Dose: 320 mg - Labs Labs: 11/06/17 05:35 11/06/17 05:35 - Constitutional Appears: No Acute Distress - Head Exam Head Exam: ATRAUMATIC, NORMAL INSPECTION, NORMOCEPHALIC - Eye Exam Eye Exam: EOMI, Normal appearance Pupil Exam: NORMAL ACCOMODATION - ENT Exam ENT Exam: Mucous Membranes Moist, Normal External Ear Exam - Neck Exam Neck Exam: Full ROM. absent: Meningismus - Respiratory Exam Respiratory Exam: NORMAL BREATHING PATTERN. absent: Wheezes, Respiratory Distress - Cardiovascular Exam Cardiovascular Exam: REGULAR RHYTHM, +S1, +S2 - GI/Abdominal Exam GI & Abdominal Exam: Soft, Normal Bowel Sounds. absent: Tenderness - Extremities Exam Extremities Exam: Normal Capillary Refill. absent: Calf Tenderness Additional comments: surgical wound intact , looks clean - Back Exam Back Exam: Full ROM. absent: CVA tenderness (L), CVA tenderness (R) - Neurological Exam Neurological Exam: Alert, Awake Neuro motor strength exam: Left Upper Extremity: 5, Right Upper Extremity: 5, Left Lower Extremity: 5, Right Lower Extremity: 5 - Psychiatric Exam Psychiatric exam: Normal Affect, Normal Mood - Skin Skin Exam: Dry, Normal Color, Warm Assessment and Plan (1) Painful total knee replacement, left Status: Chronic (2) Status post revision of total knee replacement Status: Acute (3) HTN (hypertension) Status: Chronic (4) Hyperlipidemia Status: Chronic (5) DVT prophylaxis Status: Acute - Assessment and Plan (Free Text) Assessment: 72 y/o lady with hx of HTN, Pulm Embolism, Hyperlipidemia, and previous hx of TKR , came in because of painful left TKR . Pt was admitted for planned Revision TKR . Post op , patient is doing well and participating with PT. Pt is awaiting placement in TCU (1) Painful total knee replacement, left Status: Chronic failed conservative outpt mgt for Painful left TKR Ortho consulted- Dr Peterson Pt underwent Revision TKR Pain mgt Physical and Occupational therapy Plan for d/c to TCU (2) Status post revision of total knee replacement Status: Acute (3) HTN (hypertension) Status: Chronic cont Diovan add low dose Metoprolol (4) Hyperlipidemia Status: Chronic cont statin (5) DVT prophylaxis Status: Acute Lovenox
[2017-11-07] MEDS: Lactated Ringer's 1,000 ML IV SCH ×2 (01:11→02:45)
[2017-11-07 07:38] LABS: HEMOGLOBIN 11.2 g/dL (12.0-16.0); MEAN CELL VOLUME 90.6 fl (81.0-99.0); MEAN CORPUSCULAR HEMOGLOBIN 30.3 pg (27.0-31.0); MEAN CORPUSCULAR HGB CONC 33.4 g/dL (33.0-37.0); RBC 3.7 Mil/uL (3.80-5.20); WHITE BLOOD COUNT 5.9 K/uL (4.8-10.8)
[2017-11-07 07:58] VITALS: BP 155/81; RESP 20; TEMP 98.9
[2017-11-07 08:04] LABS: BLOOD UREA NITROGEN 8 mg/dl (7-17); CALCIUM 8.6 mg/dL (8.4-10.2); GFR AFRICAN-AMERICAN > 60; GFR NON-AFRICAN AMERICAN > 60
--- NOTE | 2017-11-07 08:24 | CP.PCM.PN ---
Subjective - Date & Time of Evaluation Date of Evaluation: 11/07/17 Time of Evaluation: 08:24 - Subjective Subjective: Patient seen and examined at bedside. Pain well controlled. No new complaints. Objective - Vital Signs/Intake and Output Vital Signs (last 24 hours): Temp Pulse Resp BP Pulse Ox 98.9 F 63 20 155/81 H 96 11/07/17 07:57 11/07/17 07:57 11/07/17 07:57 11/07/17 07:57 11/07/17 07:57 - Medications Medications: Current Medications Acetaminophen (Tylenol 325mg Tab) 650 mg PO Q4 PRN PRN Reason: Fever 101 degrees fahrenheit Artificial Tears (Artificial Tears) 1 drop OU BID [facility] Last Admin: 11/06/17 16:27 Dose: 1 drop Atorvastatin Calcium (Lipitor) 20 mg PO DAILY [facility] Last Admin: 11/06/17 08:29 Dose: 20 mg Brimonidine Tartrate (Alphagan 0.2% Opht) 1 drop OU BID [facility] Last Admin: 11/06/17 16:27 Dose: 1 drop Docusate Sodium (Colace) 100 mg PO BID [facility] Last Admin: 11/06/17 16:27 Dose: 100 mg Enoxaparin Sodium (Lovenox) 40 mg SC DAILY [facility] PRN Reason: Protocol Last Admin: 11/06/17 08:28 Dose: 40 mg Lactated Ringer's (Lactated Ringer's) 1,000 mls @ 100 mls/hr IV .Q10H [facility] Last Admin: 11/07/17 02:45 Dose: Not Given Metoprolol Tartrate (Lopressor) 12.5 mg PO Q12 [facility] Last Admin: 11/06/17 21:27 Dose: 12.5 mg Morphine Sulfate (Morphine) 2 mg IVP Q4 PRN PRN Reason: Pain, severe (8-10) Last Admin: 11/07/17 07:52 Dose: 2 mg Ondansetron HCl (Zofran Inj) 4 mg IVP ONCE PRN PRN Reason: Nausea/Vomiting Oxycodone/Acetaminophen (Percocet 5/325 Mg Tab) 2 tab PO Q4 PRN PRN Reason: Pain, severe (8-10) Stop: 11/07/17 14:38 Pantoprazole Sodium (Protonix Ec Tab) 40 mg PO DAILY [facility] Last Admin: 11/06/17 08:29 Dose: 40 mg Valsartan (Diovan) 320 mg PO DAILY [facility] Last Admin: 11/06/17 08:29 Dose: 320 mg - Labs Labs: 11/07/17 06:30 11/07/17 06:30 - Extremities Exam Additional comments: L knee: dressings CDI, mod swelling, mild tenderness sensation intact SP/DP/TN motor intact EHL/FHL pedal pulses intact comp soft NT Assessment and Plan (1) Painful total knee replacement, left Assessment & Plan: POD #3 s/p L revision TKA doing well -PT/OT WBAT -DVT ppx, d/c with oral medication -recommend d/c to home today following PT -above d/w Dr. ePterson in agreement Status: Chronic
[2017-11-07] MEDS ORDERED: Potassium Chloride 20 mEq ER Tab PO ONE ×2 (08:37→09:30)
[2017-11-07] MEDS: Brimonidine 0.2% 50 DROP/5 ML BOTTLE OU SCH (08:38)
[2017-11-07] MEDS: Artificial Tears Opht Soln OU SCH (08:38)
[2017-11-07] MEDS: Enoxaparin 40 mg Syringe SC SCH (08:38)
[2017-11-07] MEDS: Pantoprazole 40 mg EC Tab PO SCH (08:39)
--- NOTE | 2017-11-07 09:11 | CP.PCM.PN ---
Subjective - Date & Time of Evaluation Date of Evaluation: 11/07/17 Time of Evaluation: 08:00 - Subjective Subjective: NO NEW COMPLAINTS Objective - Vital Signs/Intake and Output Vital Signs (last 24 hours): Temp Pulse Resp BP Pulse Ox 98.9 F 63 20 155/81 H 96 11/07/17 07:57 11/07/17 08:40 11/07/17 07:57 11/07/17 08:40 11/07/17 07:57 - Medications Medications: Current Medications Acetaminophen (Tylenol 325mg Tab) 650 mg PO Q4 PRN PRN Reason: Fever 101 degrees fahrenheit Artificial Tears (Artificial Tears) 1 drop OU BID [facility] Last Admin: 11/07/17 08:38 Dose: 1 drop Atorvastatin Calcium (Lipitor) 20 mg PO DAILY [facility] Last Admin: 11/07/17 08:39 Dose: 20 mg Brimonidine Tartrate (Alphagan 0.2% Opht) 1 drop OU BID [facility] Last Admin: 11/07/17 08:38 Dose: 1 drop Docusate Sodium (Colace) 100 mg PO BID [facility] Last Admin: 11/07/17 08:38 Dose: 100 mg Enoxaparin Sodium (Lovenox) 40 mg SC DAILY [facility] PRN Reason: Protocol Last Admin: 11/07/17 08:38 Dose: 40 mg Lactated Ringer's (Lactated Ringer's) 1,000 mls @ 100 mls/hr IV .Q10H [facility] Last Admin: 11/07/17 02:45 Dose: Not Given Metoprolol Tartrate (Lopressor) 12.5 mg PO Q12 [facility] Last Admin: 11/07/17 08:40 Dose: 12.5 mg Morphine Sulfate (Morphine) 2 mg IVP Q4 PRN PRN Reason: Pain, severe (8-10) Last Admin: 11/07/17 07:52 Dose: 2 mg Ondansetron HCl (Zofran Inj) 4 mg IVP ONCE PRN PRN Reason: Nausea/Vomiting Oxycodone/Acetaminophen (Percocet 5/325 Mg Tab) 2 tab PO Q4 PRN PRN Reason: Pain, severe (8-10) Stop: 11/07/17 14:38 Pantoprazole Sodium (Protonix Ec Tab) 40 mg PO DAILY [facility] Last Admin: 11/07/17 08:39 Dose: 40 mg Potassium Chloride (K-Dur 20 Meq Er Tab) 20 meq PO ONCE ONE Stop: 11/07/17 09:31 Valsartan (Diovan) 320 mg PO DAILY [facility] Last Admin: 11/07/17 08:39 Dose: 320 mg - Labs Labs: 11/07/17 06:30 11/07/17 06:30 - Respiratory Exam Respiratory Exam: Clear to Ausculation Bilateral - Cardiovascular Exam Cardiovascular Exam: REGULAR RHYTHM, +S1, +S2 Assessment and Plan - Assessment and Plan (Free Text) Assessment: S/P REVISION OF LEFT TKR HYPERTENSION HYPERLIPIDEMIA Plan: CONTINUE VALSARTAN, METOPROLOL, ATORVASTATIN AND LOVENOX FOR DISCHARGE
[2017-11-07 11:07] VITALS: PULSE 72; O2SAT 91
--- NOTE | 2017-11-07 11:26 | CP.PCM.DIS ---
Provider - Provider Date of Admission: 11/05/17 11:51 Attending physician: Silva Sánchez DO Primary care physician: Emily Go MD Consults: Ortho: Dr Peterson Cardio: Dr Lopez Time Spent in preparation of Discharge (in minutes): 25 Diagnosis - Discharge Diagnosis (1) Painful total knee replacement, left Status: Chronic (2) Status post revision of total knee replacement Status: Acute (3) HTN (hypertension) Status: Chronic (4) Hyperlipidemia Status: Chronic Priority: Medium (5) DVT prophylaxis Status: Acute Priority: Medium Hospital Course - Lab Results Lab Results: Micro Results 11/04/17 16:00 Knee - Left Gram Stain - Final 11/04/17 16:00 Knee - Left Wound Culture - Preliminary No growth. 11/04/17 16:00 Knee - Left Gram Stain - Final 11/04/17 16:00 Knee - Left Anaerobic Culture - Final NO ANAEROBES ISOLATED. 11/04/17 16:00 Knee - Left Wound Culture - Preliminary No growth. 11/04/17 16:00 Knee - Left Gram Stain - Final 11/04/17 16:00 Knee - Left Wound Culture - Preliminary No growth. 11/04/17 16:00 Knee - Left Gram Stain - Final 11/04/17 16:00 Knee - Left Wound Culture - Preliminary No growth. 11/04/17 11:43 Synovial Fluid Gram Stain - Final 11/04/17 11:43 Synovial Fluid Body Fluid Culture - Preliminary NO GROWTH AFTER 2 DAYS 11/04/17 11:50 Synovial Fluid Gram Stain - Final 11/04/17 11:50 Synovial Fluid Body Fluid Culture - Preliminary NO GROWTH AFTER 2 DAYS 11/04/17 16:00 Knee - Left Gram Stain - Final 11/04/17 16:00 Knee - Left Wound Culture - Preliminary No growth. 11/04/17 16:00 Knee - Left Gram Stain - Final 11/04/17 16:00 Knee - Left Anaerobic Culture - Final NO ANAEROBES ISOLATED. 11/04/17 16:00 Knee - Left Wound Culture - Preliminary No growth. 11/04/17 16:00 Knee - Left Gram Stain - Final 11/04/17 16:00 Knee - Left Wound Culture - Preliminary No growth. 11/04/17 16:00 Knee - Left Gram Stain - Final 11/04/17 16:00 Knee - Left Wound Culture - Preliminary No growth. 11/04/17 16:00 Knee - Left Gram Stain - Final 11/04/17 16:00 Knee - Left Wound Culture - Preliminary No growth. 11/04/17 16:00 Knee - Left Gram Stain - Final 11/04/17 16:00 Knee - Left Wound Culture - Preliminary No growth. 11/04/17 16:00 Knee - Left Gram Stain - Final 11/04/17 16:00 Knee - Left Wound Culture - Preliminary No growth. 11/04/17 16:00 Knee - Left Gram Stain - Final 11/04/17 16:00 Knee - Left Wound Culture - Preliminary No growth. 11/04/17 16:00 Knee - Left Gram Stain - Final 11/04/17 16:00 Knee - Left Wound Culture - Preliminary No growth. 11/04/17 16:00 Knee - Left Gram Stain - Final 11/04/17 16:00 Knee - Left Wound Culture - Preliminary No growth. 11/04/17 11:50 Knee - Left Anaerobic Culture - Final NO ANAEROBES ISOLATED. 11/04/17 11:43 Knee - Left Anaerobic Culture - Final NO ANAEROBES ISOLATED. 11/04/17 11:50 Other: Please Indicate Mycobacterial Culture - Preliminary 11/04/17 11:43 Other: Please Indicate Mycobacterial Culture - Preliminary 11/04/17 16:00 Knee - Left Gram Stain - Final 11/04/17 16:00 Knee - Left Wound Culture - Preliminary NO GROWTH AFTER 24 HOURS 11/04/17 16:00 Knee - Left Gram Stain - Final 11/04/17 16:00 Knee - Left Wound Culture - Preliminary NO GROWTH AFTER 24 HOURS 11/04/17 11:43 Knee Left Fungal Culture - Preliminary 11/04/17 11:50 Knee Left Fungal Culture - Preliminary Most Recent Lab Values WBC 5.9 K/uL (4.8-10.8) 11/07/17 06:30 RBC 3.70 Mil/uL (3.80-5.20) L 11/07/17 06:30 Hgb 11.2 g/dL (12.0-16.0) L 11/07/17 06:30 Hct 33.6 % (34.0-47.0) L 11/07/17 06:30 MCV 90.6 fl (81.0-99.0) 11/07/17 06:30 MCH 30.3 pg (27.0-31.0) 11/07/17 06:30 MCHC 33.4 g/dL (33.0-37.0) 11/07/17 06:30 RDW 14.0 % (11.5-14.5) 11/07/17 06:30 Plt Count 132 K/uL (130-400) 11/07/17 06:30 Sodium 137 mmol/l (132-148) 11/07/17 06:30 Potassium 3.4 MMOL/L (3.6-5.0) L 11/07/17 06:30 Chloride 102 mmol/L (98-107) 11/07/17 06:30 Carbon Dioxide 29 mmol/L (22-30) 11/07/17 06:30 Anion Gap 9 (10-20) L 11/07/17 06:30 BUN 8 mg/dl (7-17) 11/07/17 06:30 Creatinine 0.7 mg/dl (0.7-1.2) 11/07/17 06:30 Est GFR ( Amer) > 60 11/07/17 06:30 Est GFR (Non-Af Amer) > 60 11/07/17 06:30 Random Glucose 103 mg/dL (65-105) 11/07/17 06:30 Calcium 8.6 mg/dL (8.4-10.2) 11/07/17 06:30 Fluid Type Synovial fluid 11/04/17 12:01 Synovial WBC 15.0 /mm3 (0.0-150.0) 11/04/17 12:01 Synovial RBC 1476.0 /mm3 (0.0-0.0) H 11/04/17 12:01 Synovial Neutrophils 3.0 % (0-0) H 11/04/17 12:01 Synovial Lymphocytes 11.0 % (0-0) H 11/04/17 12:01 Synov Monos/Macrophage 1 % (0-0) H 11/04/17 12:01 Synovial Fluid Comment Slightly bloody 11/04/17 12:01 Blood Type O POSITIVE 11/04/17 08:20 Antibody Screen Negative 11/04/17 08:20 Crossmatch See Detail 11/04/17 08:20 BBK History Checked Patient has bt 11/04/17 08:20 - Hospital Course Hospital Course: 72 y/o lady with hx of HTN, Pulm Embolism, Hyperlipidemia, and previous hx of TKR , came in because of painful left TKR . Pt was admitted for planned Revision TKR . Post op , patient is doing well and participating with PT. PT recommended TCU placement however pt refused and wants to go home. (1) Painful total knee replacement, left , s/p Revision TKR Status: Chronic failed conservative outpt mgt for Painful left TKR Ortho consulted- Dr Peterson Pt underwent Revision TKR Pain mgt Physical and Occupational therapy- rec TCU placement Pt refused TCU placment , also refused Home PT and wants to have Outpt PT Arrangement made for Home CPM (2) Status post revision of total knee replacement Status: Acute (3) HTN (hypertension) Status: Chronic cont Diovan added low dose Metoprolol (4) Hyperlipidemia Status: Chronic cont statin (5) DVT prophylaxis Status: Acute Lovenox will d/c pt on Xarelto for Home DVT proph Discharge Exam - Head Exam Head Exam: ATRAUMATIC, NORMAL INSPECTION, NORMOCEPHALIC - Eye Exam Eye Exam: EOMI, Normal appearance Pupil Exam: NORMAL ACCOMODATION - ENT Exam ENT Exam: Mucous Membranes Moist, Normal External Ear Exam - Neck Exam Neck exam: Full Rom - Respiratory Exam Respiratory Exam: NORMAL BREATHING PATTERN. absent: Respiratory Distress - Cardiovascular Exam Cardiovascular Exam: REGULAR RHYTHM, +S1, +S2 - GI/Abdominal Exam GI & Abdominal Exam: Normal Bowel Sounds, Soft. absent: Tenderness - Extremities Exam Extremities exam: normal capillary refill, pedal pulses present Additional comments: no calf tenderness Knee wound looks clean, lary intact - Back Exam Back exam: FULL ROM. absent: CVA tenderness (L), CVA tenderness (R) - Neurological Exam Neurological exam: Alert, CN II-XII Intact, Oriented x3, Reflexes Normal - Psychiatric Exam Psychiatric exam: Normal Affect, Normal Mood - Skin Skin Exam: Dry, Normal Color, Warm Discharge Plan - Discharge Medications Prescriptions: Docusate [Colace] 100 mg PO BID #60 cap Hydrocodone/Acetaminophen [Hydrocodone-Acetamin 5-325 mg] 1 each PO Q6 PRN #20 tablet PRN Reason: Pain, Moderate (4-7) Rivaroxaban [Xarelto] 10 mg PO DAILY #15 tab - Follow Up Plan Condition: GOOD Disposition: HOME/ ROUTINE Instructions: Total Knee Replacement (DC), Knee Immobilizer (DC), Continuous Passive Motion Machine, Weight-Bearing Restrictions Additional Instructions: follow up with your primary MD and Dr. Peterson in 1 week Home CPM Machine-at home [facility] [phone] Outpatient Physical therapy Referrals: Joel Peterson III, MD [Staff Provider] - Emily Go MD [Primary Care Provider] -
--- NOTE | 2017-11-07 14:14 | PQF GENQUE ---
Dr. Peterson, Further clarification of the documented fracture: when did the fracture occur ? OR: Unable to determine OR: Other explanation of clinical finding 11/05: Draft Op note:Revision of left total knee replacement arthroplasty There was found to be essentially a fracture of the tibial peg on the . Complications: No complications This form is a permanent part of the medical record Clarification of your documentation is requested to better reflect the severity of illness and intensity of treatment of your patient. Indicators present [] Specify: [] [] Specify: [] [] Specify: [] [] Specify: [] Location in the medical record that reflects the above clinical findings: [] Treatment Provided: [] PHYSICIAN'S RESPONSE Based on your medical judgment of the clinical indicators outlined above please clarify the following: [] Practitioner response [] If unable to determine, please check the box, sign and date. Present On Admission (POA) Indicator: [] Present at the time of admission [] Not present at the time of admission [] Clinically Undetermined In responding to this query, please exercise your independent professional judgment. The fact that a question is asked does not imply that any particular answer is desired or expected. Thank you for your clarification on this documentation. If you have any questions please call. * Thank you, Laura Roberts RN ext. #[phone] MTDD
== END 2017-11-07 15:00 | disposition home or self-care (01) | DRG 468 ==
LOC: H.OPSURG 06:36 → H.MEDSURG1 11:51 → OBSVTOIN 11-05 11:51
PROVIDERS: ADMIT Student in an Organized Health Care Education/Training Program; ATTEND Student in an Organized Health Care Education/Training Program
PROC: 0SND0ZZ Release Left Knee Joint, Open Approach (ICD-10-PCS; 2017-11-04)
PROC: 8E0YXBZ Computer Assisted Procedure of Lower Extremity (ICD-10-PCS; 2017-11-04)
PROC: 0SBD0ZZ Excision of Left Knee Joint, Open Approach (ICD-10-PCS; principal; 2017-11-04 11:15)
PROC: 0SRD0JZ Replacement of Left Knee Joint with Synthetic Substitute, Open Approach (ICD-10-PCS; 2017-11-04 11:15)
PROC: 0SPD0JZ Removal of Synthetic Substitute from Left Knee Joint, Open Approach (ICD-10-PCS; 2017-11-04 11:15)
DX: T84.84XA Pain due to internal orthopedic prosthetic devices, implants and grafts, initial encounter (principal); E78.5 Hyperlipidemia, unspecified; T84.033A Mechanical loosening of internal left knee prosthetic joint, initial encounter; I10 Essential (primary) hypertension; H40.9 Unspecified glaucoma; Z86.711 Personal history of pulmonary embolism; K21.9 Gastro-esophageal reflux disease without esophagitis; Y83.1 Surgical operation with implant of artificial internal device as the cause of abnormal reaction of the patient, or of later complication, without mention of misadventure at the time of the procedure; Z96.642 Presence of left artificial hip joint; Z96.652 Presence of left artificial knee joint; M65.9 Synovitis and tenosynovitis, unspecified; M24.562 Contracture, left knee; T84.89XA Other specified complication of internal orthopedic prosthetic devices, implants and grafts, initial encounter